=== PATIENT | female | born 1940 | race Caucasian/White ===

== ENCOUNTER → 2018-06-02 09:13 | Oncology outpatient (ONC) | payer OTHER, SELFPAY ==
[2018-06-01 13:10] LABS: Hemoglobin 7.6 g/dL (12.0-16.0)
[2018-06-01 14:17] VITALS: BP 111/54; PULSE 85; RESP 18; TEMP 36.5
[2018-06-01 14:33] VITALS: BP 140/75; PULSE 83; RESP 18; TEMP 36.7
[2018-06-01 16:29] VITALS: BP 139/74; PULSE 76; RESP 18; TEMP 36.9
--- NOTE | 2018-06-01 16:51 | PC.NURSE ---
Patient received first unit of PRBCs on our unit without problem. She was transferred by this nurse to acute care. Report given to RN Govind Melgoza that patient still to receive the post first infusion lasix, 2nd unit and then H and H to be drawn. Patient tolerated transfer without problem.
[2018-06-01] MEDS: FUROSEMIDE 20 MG/2 ML VIAL IV (17:04)
[2018-06-01 17:08] VITALS: BP 147/84; PULSE 71; RESP 16; TEMP 36.7
[2018-06-01 17:24] VITALS: BP 154/74; PULSE 72; RESP 18; TEMP 36.9
--- NOTE | 2018-06-01 17:37 | PC.NURSE ---
Pt transfusoin going w/o incidence, Lasix given proir to second unit Assisted to BR, Denies any requests at ths time.
[2018-06-01 19:47] LABS: Hematocrit 35.3 % (36-46); Hemoglobin 10.9 g/dL (12.0-16.0)
== END ==
PROVIDERS: Family Provider Physician Assistant; PCP Physician Assistant; Visit Provider Physician Assistant
DX: D50.9 Iron deficiency anemia, unspecified (principal)
CPT/HCPCS: 36430; 85014; 85018; 86850; 86900; 86901; P9016; J1940